=== PATIENT | female | born 1940 | race Caucasian/White ===

== ENCOUNTER 2018-11-28 15:29 | Outpatient (CLI) | payer MEDICARE, OTHER ==
--- NOTE | 2018-11-30 10:33 | XRAY Report ---
Reason: PLEURODYNIA Procedure Date: 11/28/2018 Accession Number: [id number] / [id number] Procedure: XRS - Ribs 3 View BILAT CPT Code: FULL RESULT: EXAM: BILATERAL RIB RADIOGRAPHY EXAM DATE: 11/28/2018 03:49 PM. CLINICAL HISTORY: Pleurodynia. Bilateral anterior lower rib pain after the Heimlich technique was used on her 3 days ago. COMPARISON: CHEST 2 VIEW PA/LAT 09/20/2014 11:13 AM. TECHNIQUE: 2 views. FINDINGS: Bones: Lucency along the anterior medial left seventh rib. No other osseous abnormality. Lungs: No definitive pneumothorax or pleural effusions. Mediastinum: Heart may be enlarged. Other: Degenerative changes. Changes are seen from median sternotomy and valve surgery. IMPRESSION: 1. Possible anterior medial left seventh rib fracture. No other osseous abnormalities. RADIA
== END 2018-11-28 15:30 | disposition home or self-care (01) ==
LOC: DI.S 15:29
PROVIDERS: ATTEND Nurse Practitioner Family
DX: R07.81 Pleurodynia (principal)
CPT/HCPCS: 71110

== ENCOUNTER 2018-12-22 09:19 | Outpatient (CLI) | payer MEDICARE, OTHER ==
--- NOTE | 2018-12-22 16:41 | DEXA Report ---
Reason: POSTMENOPAUSAL, T12 COMP FX ON CT Procedure Date: 12/22/2018 Accession Number: [id number] / [id number] Procedure: DEX - Dexa Spine and/or Hip CPT Code: FULL RESULT: EXAM: Dexa Spine and/or Hip DATE: 12/22/2018 9:59 AM CLINICAL HISTORY: POSTMENOPAUSAL, T12 COMP FX ON CT TECHNIQUE: Dual energy x-ray absorptiometry (DXA) was performed on a [employer] System. Regions measured are the AP Spine, femoral neck, and if needed forearm. COMPARISON: None. In accordance with the International Society for Clinical Densitometry (ISCD) guidelines, data from previous exams may be reanalyzed using current recommendations and techniques. This is done to allow a more accurate basis for comparison with the current study. FINDINGS: The data for the lumbar spine is as follows: BMD (g/cm/cm) T-SCORE Z-SCORE REGION L1 0.843 -2.4 -0.6 L2 0.942 -2.1 -0.4 L3 0.983 -1.8 0.0 L4 1.056 -1.2 0.6 TOTAL 0.965 -1.8 0.0 NOTE: All evaluable vertebrae are used for classification The data for the hip is as follows: BMD (g/cm/cm) T-SCORE Z-SCORE REGION Neck 0.757 -2.0 0.0 TOTAL 0.780 -1.8 0.0 NOTE: The femoral neck or total proximal femur, whichever is lowest, is used for classification. IMPRESSION: THE WHO CLASSIFICATION BASED ON THE INTERNATIONAL REFERENCE STANDARD IS OSTEOPENIA. THE FRACTURE RISK IS INCREASED. RECOMMENDATION: Patients with diagnosis of osteoporosis or osteopenia should have regular bone mineral density assessment. For those eligible for Medicare, routine testing is allowed once every 2 years. Testing frequency can be increased for patients who have rapidly progressing disease or for those who are receiving medical therapy to restore bone mass. COMMENT: World Health Organization (WHO) definitions for osteoporosis and osteopenia: NORMAL BMD: T-score at -1.0 or higher, fracture risk is low OSTEOPENIA BMD: T-score between -1.0 and -2.5, fracture risk is increased. OSTEOPOROSIS BMD: T-score at -2.5 or lower, fracture risk is high. National Osteoporosis Foundation recommends: 1. Obtain adequate dietary calcium (at least 1200 mg per day) and vitamin D (400-800 international units per day). 2. Participate, as appropriate, in regular weightbearing and muscle-strengthening exercise. 3. Avoid tobacco use and reduce alcohol and caffeine intake. 4. For more detailed information see the website at www.NOF.org.
== END 2018-12-22 09:20 | disposition home or self-care (01) ==
LOC: DI 09:19
PROVIDERS: ATTEND Registered Nurse
DX: M85.89 Other specified disorders of bone density and structure, multiple sites (principal)
CPT/HCPCS: 77080

== ENCOUNTER 2020-06-28 10:00 | Outpatient (CLI) | payer MEDICARE, OTHER ==
[2020-06-28 15:27] LABS: ALBUMIN 4.2 g/dL (3.2-5.5); ALBUMIN/GLOBULIN RATIO 1.6 (1.0-2.2); ALKALINE PHOSPHATASE 66 IU/L (42-121); ALT ALANINE AMINOTRANSFERASE 27 IU/L (10-60); AST ASPARTATE AMINOTRANSFERASE 26 IU/L (10-42); BILIRUBIN,TOTAL 0.8 mg/dL (0.2-1.0); BUN - BLOOD UREA NITROGEN 14 mg/dL (6-20); CALCIUM 9.5 mg/dL (8.5-10.3); CARBON DIOXIDE - CO2 27 mmol/L (21-32); CHLORIDE 96 mmol/L (101-111); CHOL/HDL RATIO 4.2 (<4.4); CHOLESTEROL 303 mg/dL; CREATININE 0.7 mg/dL (0.4-1.0); GFR - MDRD 81 (>89); GLUCOSE 100 mg/dL (70-100); HDL CHOLESTEROL 72 mg/dL; LDL CHOLESTEROL,CALCULATED 210 mg/dL; LDL/HDL RATIO 2.9 (<4.4); POTASSIUM 4.6 mmol/L (3.5-5.0); SODIUM 131 mmol/L (135-145); TOTAL PROTEIN 6.9 g/dL (6.7-8.2); TRIGLYCERIDES 104 mg/dL; VLDL CHOLESTEROL 21 mg/dL
== END 2020-06-28 10:01 | disposition home or self-care (01) ==
LOC: LAB.S 10:00
PROVIDERS: ATTEND Registered Nurse
DX: R79.9 Abnormal finding of blood chemistry, unspecified (principal); E83.52 Hypercalcemia
CPT/HCPCS: 36415; 80053; 80061; 83721

== ENCOUNTER 2021-10-29 13:08 | Emergency (ER) | payer MEDICARE, OTHER ==
--- NOTE | 2021-10-29 13:57 | ED Physician Documentation ---
PD HPI SKIN - Stated complaint Stated Complaint: BODY RASH/SWELLING - Chief complaint Chief Complaint: Wound - History obtained from History obtained from: Patient - Additional information Additional information: 81-year-old woman status post remote porcine aortic valve replacement has been dealing with a rash of unclear etiology for the last year. She has seen numerous data quality consultant including to the [facility] and 2 in [place] without a clear diagnosis other than dermatitis. She has been trialed on oral steroids without relief. More acutely she stopped taking all of her medications a few months ago thinking that the rash might be related to her medications. Over the last week has developed edema legs more than arms without shortness of breath or chest pain. No urinary complaints. 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 HEENT: Tonsil/Adenoidectomy - Present Medications Home Medications: Ambulatory Orders Medication Instructions Recorded Confirmed FLUoxetine [PROzac] 40 mg PO DAILY 04/28/13 10/29/21 Levothyroxine Sodium [Levoxyl] 50 mcg PO DAILY 04/28/13 10/29/21 Budesonide [Entocort EC] 1 cap PO DAILY 08/08/17 10/29/21 Doxepin [SINEquan] 10 mg PO TID PRN #30 cap 10/29/21 Furosemide [Lasix] 20 mg PO DAILY #30 tablet 10/29/21 Potassium Chloride 10 meq PO DAILY #30 tab 10/29/21 Zolpidem Tartrate [Ambien] 10 mg PO HS PRN 10/29/21 10/29/21 cephALEXin [Keflex] 500 mg PO Q6H #28 cap 10/29/21 - Allergies Allergies/Adverse Reactions: Allergies Allergy/AdvReac Type Severity Reaction Status Date / Time Sulfa (Sulfonamide Allergy vomiting Verified 10/29/21 13:32 Antibiotics) - Social History Does the pt smoke?: No Smoking Status: Never smoker Does the pt drink ETOH?: Yes Does the pt have substance abuse?: No PD ED PE NORMAL - Vitals Vital signs reviewed: Yes - General General: Alert and oriented X 3, No acute distress - HEENT HEENT: PERRL, EOMI - Neck Neck: Supple, no meningeal sign, No bony TTP - Cardiac Cardiac: Other (2/6 decresendo murmur, irregular beat c/w bigemiy) - Respiratory Respiratory: No respiratory distress, Clear bilaterally - Abdomen Abdomen: Normal bowel sounds, Soft, Non tender - Back Back: No CVA TTP, No spinal TTP - Derm Derm: Normal color, Warm and dry - Extremities Extremities: Other (She is a scaling eczematous rash all over most prominent on the extensor surfaces of the arms. She has 3+ pitting pedal edema with venous stasis changes. No evidence of infection.) - Neuro Neuro: Alert and oriented X 3, Normal speech Results - Vitals Vitals: Vital Signs - 24 hr 10/29/21 10/29/21 13:20 14:38 Heart Rate 98 99 Respiratory 14 21 Rate Blood Pressure 110/82 H 109/83 H O2 Saturation 100 100 Oxygen O2 Source Room air - EKG (time done) 1425 Rate: Rate (enter#) (97) Rhythm: NSR (w pac) [place]: Normal Intervals: Normal [place] QRS: Normal Ischemia: Non specific changes - Labs Labs: Laboratory Tests 10/29/21 10/29/21 10/29/21 14:04 14:04 14:04 WBC 11.3 H RBC 3.76 L Hgb 13.1 Hct 36.3 L MCV 96.5 MCH 34.8 H MCHC 36.1 H RDW 18.2 H Plt Count 352 MPV 9.4 Neut # (Auto) 8.1 H Lymph # (Auto) 1.3 L [place] # (Auto) 1.0 Eos # (Auto) 0.8 H Baso # (Auto) 0.0 Absolute Nucleated RBC 0.00 Nucleated RBC % 0.0 ESR 22 Sodium Potassium Chloride Carbon Dioxide Anion Gap BUN Creatinine Estimated GFR (MDRD) Glucose Calcium Total Bilirubin AST ALT Alkaline Phosphatase C-Reactive Protein B-Natriuretic Peptide Total Protein Albumin Globulin Albumin/Globulin Ratio TSH Rheumatoid Factor NEGATIVE 10/29/21 10/29/21 10/29/21 14:04 14:04 14:04 WBC RBC Hgb Hct MCV MCH MCHC RDW Plt Count MPV Neut # (Auto) Lymph # (Auto) [place] # (Auto) Eos # (Auto) Baso # (Auto) Absolute Nucleated RBC Nucleated RBC % ESR Sodium 138 Potassium 4.3 Chloride 100 L Carbon Dioxide 26 Anion Gap 12.0 BUN 29 H Creatinine 1.0 Estimated GFR (MDRD) 53 L Glucose 104 H Calcium 9.0 Total Bilirubin 0.5 AST 38 ALT 36 Alkaline Phosphatase 76 C-Reactive Protein 1.6 H B-Natriuretic Peptide 243 H Total Protein 6.7 Albumin 3.8 Globulin 2.9 Albumin/Globulin Ratio 1.3 TSH 1.23 Rheumatoid Factor PD MEDICAL DECISION MAKING - ED course ED course: 81-year-old woman with history of aortic valve replacements, Porcine 7 years ago presents with pedal edema that is new and an ongoing rash. Initially stated the rash did not respond to steroids but then her best friend at the bedside corrected her and they requested a shot of steroids. She wanted an autoimmune work-up and multiple labs were ordered and pending on discharge, I gave her a list of these and she understands the need that she needs to follow-up on them or her primary care can follow-up on them. Departure - Departure Disposition: 01 Home, Self Care Clinical Impression: Anasarca, Rash Condition: Good Record reviewed to determine appropriate education?: Yes Instructions: ED CHF General Prescriptions: cephALEXin [Keflex] 500 mg PO Q6H #28 cap Furosemide [Lasix] 20 mg PO DAILY #30 tablet Potassium Chloride 10 meq PO DAILY #30 tab Doxepin [SINEquan] 10 mg PO TID PRN #30 cap PRN Reason: Itching Comments: I sent your prescription electronically to the [facility] pharmacy at the corner of [address] here in [place]. As discussed, your results demonstrate a mildly elevated white count with normal/near normal inflammatory markers. Mild elevation of BNP consistent with heart Failure. Important to follow-up with your body former, repeat echocardiogram since its been a few years. Also your data quality consultant. Return if worsening.
--- OUTSIDE RECORDS SUMMARY | 2021-10-29 14:02 | EXTERNAL MEDICAL SUMMARY RPT | Continuity of Care Document ---
:1940 Author Organization [facility] Address [address] [place] [address] Phone Allergies No information. Encounters No information. Functional Status No information. Immunizations No information. Medications date description facility [id number] doxycycline hyclate [facility] [place] [id number] doxycycline hyclate [facility] [place] Problems No information. Procedures date description facility [id number] Visit Code Hold [facility] [place] Results/Labs No information. Social History date description facility [id number] Never smoker [facility] [place] Vital Signs date measurement value units [id number]+0000 BMI BMI 27.76 kg/m2 87283375497931+0000 BP_diastolic BP_diastolic 67 mm[H g] 26289250682525+0000 BP_systolic BP_systolic 117 mm[Hg] 51255025313677+0000 heart_rate heart_rate 92 /min 02507516662776+0000 height_metric height_metric 153.67 cm 76964356487282+0000 height_standard height_standard 60.5 in 10115339782416+0000 respiration_rate respiration_rate 16 /min 70312515203936+0000 temperature_metric temperature_metric 36.51 C 89004713656589+0000 temperature_standard temperature_standard 9 7.72 F 37434701013621+0000 weight_metric weight_metric 65.32 kg 98969194420754+0000 weight_standard weight_standard 144 lb
[2021-10-29] MEDS ORDERED: DOXEPIN 10 MG CAPSULE PO STA (14:11)
[2021-10-29 14:15] LABS: BASOPHILS % (AUTO) 0.4 %; EOSINOPHILS # (AUTO) 0.8 10^3/uL (0.0-0.7); EOSINOPHILS % (AUTO) 6.7 %; HCT - HEMATOCRIT 36.3 % (37.0-47.0); HGB - HEMOGLOBIN 13.1 g/dL (12.0-16.0); LYMPHOCYTES # (AUTO) 1.3 10^3/uL (1.5-3.5); LYMPHOCYTES % (AUTO) 11.2 %; MEAN CORPUSCULAR HEMOGLOBIN 34.8 pg (27.0-31.0); MEAN CORPUSCULAR HGB CONC 36.1 g/dL (32.0-36.0); MEAN CORPUSCULAR VOLUME 96.5 fL (81.0-99.0); MEAN PLATELET VOLUME 9.4 fL (7.9-10.8); NEUTROPHILS # (AUTO) 8.1 10^3/uL (1.5-6.6); NEUTROPHILS % (AUTO) 71.4 %; PLT - PLATELET COUNT 352 10^3/uL (130-450); RED BLOOD COUNT 3.76 10^6/uL (4.20-5.40); RED CELL DISTRIBUTION WIDTH 18.2 % (12.0-15.0); WHITE BLOOD COUNT 11.3 x10^3/uL (4.8-10.8)
[2021-10-29 14:37] LABS: ALBUMIN 3.8 g/dL (3.2-5.5); ALBUMIN/GLOBULIN RATIO 1.3 (1.0-2.2); BILIRUBIN,TOTAL 0.5 mg/dL (0.2-1.0); CRP - C-REACTIVE PROTEIN 1.6 mg/dL (0-1.0); POTASSIUM 4.3 mmol/L (3.5-5.0); TOTAL PROTEIN 6.7 g/dL (6.7-8.2)
[2021-10-29 14:39] VITALS: BP 109/83
[2021-10-29] MEDS ORDERED: DEXAMETHASONE 10 MG/ML VIAL IM STA (15:08)
[2021-10-29 15:09] LABS: RHEUMATOID FACTOR NEGATIVE (Negative)
[2021-10-30 06:09] LABS: HBsAG SCREEN Negative (Negative); HCV AB <0.1 s/co ratio (0.0-0.9); HEPATITIS B CORE IGM AB Negative (Negative)
[2021-10-30 14:08] LABS: ANTI-DNA (DS) AB QN <1 IU/mL (0-9); CENTROMERE B ANTIBODIES <0.2 AI (0.0-0.9); CHROMATIN ANTIBODIES <0.2 AI (0.0-0.9); JO-1 AB <0.2 AI (0.0-0.9); RIBOSOMAL P ANTIBODIES <0.2 AI (0.0-0.9); RNP ANTIBODIES <0.2 AI (0.0-0.9); SCLERODERMA-70 ANTIBODIES <0.2 AI (0.0-0.9); SJOGREN'S ANTI-SS-A <0.2 AI (0.0-0.9); SJOGREN'S ANTI-SS-B <0.2 AI (0.0-0.9); SMITH ANTIBODIES <0.2 AI (0.0-0.9); SMITH/RNP ANTIBODIES <0.2 AI (0.0-0.9)
[2021-11-03 21:08] LABS: CYCLIC CITRULLINATED PEP IGG/A 7 units (0-19)
== END 2021-10-29 15:40 | disposition home or self-care (01) ==
LOC: ED 13:08
DX: R60.1 Generalized edema (principal); R21 Rash and other nonspecific skin eruption; Z95.2 Presence of prosthetic heart valve
CPT/HCPCS: 36415; 80053; 81374; 83880; 84443; 85025; 85651; 86140; 86200; 86225; 86235; 86430; 86705; 86709; 86803; 87340; 93005; 96372; 99283; 99284; A9270

== ENCOUNTER 2021-11-03 11:48 | Emergency (ER) | payer MEDICARE, OTHER ==
--- OUTSIDE RECORDS SUMMARY | 2021-11-03 13:41 | EXTERNAL MEDICAL SUMMARY RPT | Continuity of Care Document ---
:1940 Author Organization [facility] Address [address] [place] [address] Phone Allergies No information. Encounters No information. Functional Status No information. Immunizations No information. Medications date description facility [id number]+0000 doxycycline hyclate [facility] [id number]+0000 doxycycline hyclate [facility] [place] Problems No information. Procedures date description facility [id number]+0000 Visit Code Hold [facility] [place] Results/Labs No information. Social History date description facility [id number]+0000 Never smoker [facility] [place] Vital Signs date measurement value units [id number]+0000 BMI BMI 27.76 kg/m2 83472323787251+0000 BP_diastolic BP_diastolic 67 mm[H g] 23196942757879+0000 BP_systolic BP_systolic 117 mm[Hg] 35757158600825+0000 heart_rate heart_rate 92 /min 62131261789072+0000 height_metric height_metric 153.67 cm 82035456017544+0000 height_standard height_standard 60.5 in 02250671080102+0000 respiration_rate respiration_rate 16 /min 53595431005019+0000 temperature_metric temperature_metric 36.51 C 90223195041237+0000 temperature_standard temperature_standard 9 7.72 F 60316308226923+0000 weight_metric weight_metric 65.32 kg 46974124019035+0000 weight_standard weight_standard 144 lb
--- NOTE | 2021-11-03 16:00 | ED Physician Documentation ---
History of Present Illness - Stated complaint Stated Complaint: ANKLE SWELLING - Chief complaint Chief Complaint: General - History obtained from History obtained from: Patient, Caregiver - History of Present Illness Pain level max: 2 Pain level now: 1 - Additonal information Additional information: Patient is a 81-year-old female brought into the emergency department for increased swelling and rashes to the entire body. She states most of the swelling has been in her legs. She was recently prescribed Lasix but states it is not helping. She states that she has had the rash for several years. Has been to at least 4 stamping mill tender, had multiple biopsies and work-ups without a cause found. She has seen several naturopathic doctors. She is on a long list of medications. She is unsure why she is on several of the medications including naltrexone. She does have a history of a heart valve replacement. She has no shortness of breath, cough, congestion. She states that the itching improved with gabapentin. The edema in her legs improves with elevation. Review of Systems Ten Systems: 10 systems reviewed and negative Constitutional: denies: Fever, Chills Throat: denies: Sore throat Cardiac: denies: Chest pain / pressure, Palpitations Respiratory: denies: Dyspnea, Cough Skin: denies: Rash Musculoskeletal: denies: Neck pain, Back pain Neurologic: denies: Headache PD PAST MEDICAL HISTORY - Past Medical History Cardiovascular: High cholesterol Respiratory: None Endocrine/Autoimmune: HyPOthyroidism GI: GERD, Other PUBLIC SPACE ATTENDANT: None : None HEENT: None Psych: None Musculoskeletal: None Derm: Other - Past Surgical History Past Surgical History: Yes General: Appendectomy /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 ATTENDANT: Hysterectomy HEENT: Tonsil/Adenoidectomy - Present Medications Home Medications: Ambulatory Orders Medication Instructions Recorded Confirmed FLUoxetine [PROzac] 40 mg PO DAILY 04/28/13 10/29/21 Levothyroxine Sodium [Levoxyl] 50 mcg PO DAILY 04/28/13 10/29/21 Budesonide [Entocort EC] 1 cap PO DAILY 08/08/17 10/29/21 Doxepin [SINEquan] 10 mg PO TID PRN #30 cap 10/29/21 Furosemide [Lasix] 20 mg PO DAILY #30 tablet 10/29/21 Potassium Chloride 10 meq PO DAILY #30 tab 10/29/21 Zolpidem Tartrate [Ambien] 10 mg PO HS PRN 10/29/21 10/29/21 cephALEXin [Keflex] 500 mg PO Q6H #28 cap 10/29/21 Gabapentin [Neurontin] 300 mg PO TID #90 cap 11/03/21 Spironolactone [Aldactone] 25 mg PO DAILY #14 tablet 11/03/21 - Allergies Allergies/Adverse Reactions: Allergies Allergy/AdvReac Type Severity Reaction Status Date / Time Sulfa (Sulfonamide Allergy vomiting Verified 11/03/21 11:56 Antibiotics) - Social History Does the pt smoke?: No Smoking Status: Never smoker Does the pt drink ETOH?: Yes Does the pt have substance abuse?: No - Immunizations Immunizations: Other immun not current PD ED PE NORMAL - Vitals Vital signs reviewed: Yes - General General: Alert and oriented X 3, No acute distress - HEENT HEENT: Moist mucous membranes - Neck Neck: Supple, no meningeal sign - Cardiac Cardiac: RRR, Strong equal pulses - Respiratory Respiratory: No respiratory distress, Clear bilaterally - Abdomen Abdomen: Soft, Non tender, Non distended - Derm Derm: Warm and dry - Extremities Extremities: Other (2+ bilateral pitting edema. scaling rashes to the B arms and legs. no signs of infection.) - Neuro Neuro: Alert and oriented X 3 - Psych Psych: Normal mood, Normal affect Results - Vitals Vitals: Vital Signs - 24 hr 11/03/21 11/03/21 11/03/21 11:56 11:59 13:59 Temperature 36.4 C L 36.4 C L Heart Rate 78 78 78 Respiratory 19 19 19 Rate Blood Pressure 146/65 H 146/65 H 146/65 H O2 Saturation 94 94 94 11/03/21 16:19 Temperature Heart Rate 69 Respiratory 16 Rate Blood Pressure 149/79 H O2 Saturation 100 Oxygen O2 Source Room air PD MEDICAL DECISION MAKING - ED course Complexity details: reviewed results, re-evaluated patient, considered differential, d/w patient, d/w family ED course: Patient is a 81-year-old female who has been the multiple different doctors for her rash and swelling. She has an echocardiogram scheduled. She does not have a consistent primary care provider. She does not have any emergent medical condition at this time. She would like to try a different diuretic, therefore we will stop the Lasix and start her on spironolactone. She would likely benefit from compression stockings as well so these were given to the patient. We will also trial her on gabapentin as this seems to help her pain and itching. Patient counseled regarding signs and symptoms for which I believe and urgent re-evaluation would be necessary. Patient with good understanding of and agreement to plan and is comfortable going home at this time This document was made in part using voice recognition software. While efforts are made to proofread this document, sound alike and grammatical errors may occur. Departure - Departure Disposition: 01 Home, Self Care Clinical Impression: Peripheral edema, Dermatitis Condition: Good Instructions: ED Edema Legs Bilateral Follow-Up: Hong Murry MD [Provider Admit Priv/Credential] - Hong Murry MD [Provider Admit Priv/Credential] - Zechariah Mota MD [Provider Admit Priv/Credential] - Zechariah Mota MD [Provider Admit Priv/Credential] - Prescriptions: Spironolactone [Aldactone] 25 mg PO DAILY #14 tablet Gabapentin [Neurontin] 300 mg PO TID #90 cap Comments: Use the compression socks as we talked about. Please follow-up with your doctor for further care. We will try you on spironolactone rather than Lasix. You can also stop the potassium pills while you are on the spironolactone. We will trial you on gabapentin for your pain. Discharge Date/Time: 11/03/21 16:19
[2021-11-03 16:21] VITALS: BP 149/79
== END 2021-11-03 16:19 | disposition home or self-care (01) ==
LOC: ED 11:48
DX: R60.0 Localized edema (principal); L30.9 Dermatitis, unspecified
CPT/HCPCS: 99282; 99283

== ENCOUNTER 2022-01-12 12:44 | Outpatient (CLI) | payer MEDICARE, OTHER | END 2022-01-12 12:45 | disposition home or self-care (01) | LOC: LAB.S 12:44 | PROVIDERS: ATTEND Internal Medicine Gastroenterology | DX: Z53.9 Procedure and treatment not carried out, unspecified reason (principal) | CPT/HCPCS: 87507 ==

== ENCOUNTER 2023-04-09 08:00 | Outpatient (CLI) | payer MEDICARE, OTHER ==
--- NOTE | 2023-04-09 12:46 | XRAY Report ---
PROCEDURE: Chest 2 View X-Ray INDICATIONS: PRODUCTIVE COUGH/WHEEZING TECHNIQUE: 2 views of the chest were acquired. COMPARISON: None. FINDINGS: Surgical changes and devices: Aortic valve prosthesis with sternotomy wires. Lungs and pleura: No pleural effusions or pneumothorax. Lungs are clear. Mediastinum: Mediastinal contours appear normal. Heart size is normal. Bones and chest wall: No suspicious bony lesions. Overlying soft tissues appear unremarkable. Rem ote right posterior lateral rib fractures. IMPRESSION: No acute cardiopulmonary process. Reviewed by: Darek Gotti MD on 04/09/2023 11:45 AM [facility] Approved by: Darek Gotti MD on 04/09/2023 11:45 AM [facility] Station ID: [id number]
== END 2023-04-09 23:59 | disposition home or self-care (01) ==
LOC: DI.S 08:00
PROVIDERS: ATTEND Physician Assistant Medical
DX: R05.8 Other specified cough (principal); R06.2 Wheezing

== ENCOUNTER 2023-04-09 08:00 | Outpatient (CLI) | payer MEDICARE, OTHER | END 2023-04-09 08:01 | disposition home or self-care (01) | LOC: LAB.S 08:00 | PROVIDERS: ATTEND Physician Assistant Medical | DX: R05.8 Other specified cough (principal); R06.2 Wheezing ==

== ENCOUNTER 2023-04-27 08:00 | Outpatient (CLI) | payer MEDICARE, OTHER | END 2023-04-27 08:01 | disposition home or self-care (01) | LOC: LAB.R 08:00 | PROVIDERS: ATTEND Internal Medicine Gastroenterology | DX: K52.9 Noninfective gastroenteritis and colitis, unspecified (principal) | CPT/HCPCS: 81599; 83993; 87045; 87046; 87177; 87209; 87427; 87493 ==